=== PATIENT | female | born 1990 | race Caucasian/White ===

== ENCOUNTER 2016-11-26 15:46 | Observation (INO) | payer OTHER ==
[~2016-11-26] VITALS: Ht 170 cm; Wt 65.8 kg
== END 2016-11-26 23:50 | disposition home or self-care (01) ==
LOC: 4S 15:46
PROVIDERS: ADMIT Obstetrics & Gynecology; ATTEND Obstetrics & Gynecology
DX: O46.93 Antepartum hemorrhage, unspecified, third trimester (principal); Z3A.37 37 weeks gestation of pregnancy
CPT/HCPCS: 59025; G0378

== ENCOUNTER 2016-12-03 09:55 | Observation (INO) | payer OTHER ==
[~2016-12-03] VITALS: Ht 165.1 cm; Wt 68.0 kg
[2016-12-03] MEDS ORDERED: PREN1TAB80 PO (10:27)
[2016-12-03 10:29] VITALS: BP 109/64
== END 2016-12-03 11:20 | disposition home or self-care (01) ==
LOC: 4S 09:55
PROVIDERS: ADMIT Obstetrics & Gynecology; ATTEND Obstetrics & Gynecology
DX: O26.93 Pregnancy related conditions, unspecified, third trimester (principal)
CPT/HCPCS: 59025; G0378

== ENCOUNTER 2016-12-04 18:11 | Inpatient (IN) | payer OTHER ==
[~2016-12-04] VITALS: Ht 170 cm; Wt 68.5 kg
[~2016-12-04 18:11] MED LIST: PREN1TAB80 PO
[2016-12-04] MEDS ORDERED: OXYTOCIN 30 UNITS/LACT RINGERS 500 ML IV ONE (18:35)
[2016-12-04] MEDS ORDERED: RINGERS SOLUTION,LACTATED 1,000 ML IV SCH (18:35)
[2016-12-04] MEDS ORDERED: RINGERS SOLUTION,LACTATED 1,000 ML IV PRN (18:35)
[2016-12-04 18:38] VITALS: BP 115/64
[2016-12-04] MEDS ORDERED: CITRIC ACID/SODIUM CITRATE 30 ML SOLUTION UDCUP PO PRN (18:45)
[2016-12-04] MEDS ORDERED: LIDOCAINE HCL/PF 1% 30 ML VIAL INJ PRN (18:45)
[2016-12-04] MEDS ORDERED: METHYLERGONOVINE MALEATE 0.2 MG/ML VIAL IM PRN (18:45)
[2016-12-04] MEDS ORDERED: METOCLOPRAMIDE HCL 5 MG/ML 2 ML VIAL IVP PRN (18:45)
[2016-12-04] MEDS ORDERED: INFLUENZA VIRUS VACCINE QVS 2017-18 (3YR+)/PF 60 MCG/0.5 ML SYRINGE IM ONE (19:00)
[2016-12-04 19:18] LABS: BASOPHILS # (AUTO) 0.04 K/uL (0.00-0.20); BASOPHILS % (AUTO) 0.6 % (0.0-2.0); EOSINOPHILS # (AUTO) 0.05 K/uL (0.00-0.70); EOSINOPHILS % (AUTO) 0.89 % (1.0-6.0); HEMATOCRIT 32.9 % (36-46); HEMOGLOBIN 11.1 g/dL (12.0-16.0); LYMPHOCYTES # (AUTO) 1.8 K/uL (1.0-4.8); MEAN CORPUSCULAR HEMOGLOBIN 32.7 pg (26.0-34.0); MEAN CORPUSCULAR HGB CONC 33.8 G/dL (31.0-37.0); MEAN CORPUSCULAR VOLUME 97 fL (80-100); MONOCYTES # (AUTO) 0.5 K/uL (0.1-1.0); MONOCYTES % (AUTO) 7.5 % (2.0-9.0); NEUTROPHILS # (AUTO) 3.7 K/uL (1.8-7.7); NEUTROPHILS % (AUTO) 61.1 % (40.0-70.0); RED BLOOD CELL COUNT(AUTO) 3.39 MIL/uL (4.00-5.20); RED CELL DISTRIBUTION WIDTH 14.3 % (11.5-14.5); WHITE BLOOD COUNT (AUTO) 6.1 K/uL (4.5-11.0)
[2016-12-04] MEDS ORDERED: DINOPROSTONE 10 MG VAGINAL SUPPOSITORY VG ONE (19:45)
[2016-12-04] MEDS ORDERED: OXYGEN THERAPY IH SCH (20:00)
[2016-12-05] MEDS: FentaNYL CITRATE-PF 100 MCG/2 ML VIAL IVP PRN ×3 (05:06→07:50)
[2016-12-05] MEDS ORDERED: OXYTOCIN 30 UNITS/LACT RINGERS 500 ML IV PRN (08:18)
[2016-12-05] MEDS ORDERED: BUPIVACAINE HCL/PF 0.25% 30 ML VIAL ONE (10:33)
[2016-12-05] MEDS ORDERED: FentaNYL/BUPIV 0.125%/NS/PF 200 ML ED ONE (10:35)
[2016-12-05] MEDS ORDERED: FentaNYL/BUPIV 0.125%/NS/PF 200 ML ED PRN (11:13)
[2016-12-05] MEDS ORDERED: ONDANSETRON HCL 4 MG/2 ML VIAL IVP PRN (11:15)
[2016-12-05] MEDS ORDERED: DiphenhydrAMINE HCL 50 MG/ML VIAL IVP PRN (11:15)
[2016-12-05] MEDS ORDERED: CeFAZolin 2 GM/DEXTROSE 50 ML IV ONE (13:30)
[2016-12-05] MEDS ORDERED: ACETAMINOPHEN/CODEINE 300-30 MG TABLET PO PRN ×2 (14:00)
[2016-12-05] MEDS ORDERED: BENZOCAINE 20%/MENTHOL 56 GM SPRAY CANISTER TP PRN (14:00)
[2016-12-05] MEDS ORDERED: LANOLIN 7 GM OINTMENT TP PRN (14:00)
[2016-12-05] MEDS ORDERED: GLYCERIN/WITCH HAZEL LEAF 40 PADS JAR TP PRN (14:00)
[2016-12-05] MEDS: IBUPROFEN 800 MG TABLET PO SCH ×2 (15:39→22:20)
[2016-12-05] MEDS: MAGNESIUM HYDROXIDE SUSPENSION 30 ML UDCUP PO SCH (22:20)
[2016-12-06] MEDS: IBUPROFEN 800 MG TABLET PO SCH ×2 (06:02→12:15)
[2016-12-06] MEDS: MAGNESIUM HYDROXIDE SUSPENSION 30 ML UDCUP PO SCH (09:12)
[2016-12-06] MEDS ORDERED: IBUP-2071 PO (15:44)
[2016-12-06] MEDS ORDERED: DSS100 PO (15:45)
== END 2016-12-06 16:00 | disposition home or self-care (01) | DRG 775 ==
LOC: 4S 18:11 → PREOBSVTOIN 12-31 18:23
PROVIDERS: ADMIT Obstetrics & Gynecology; ATTEND Obstetrics & Gynecology
PROC: 10D07Z6 Extraction of Products of Conception, Vacuum, Via Natural or Artificial Opening (ICD-10-PCS; principal; 2016-12-05)
PROC: 0KQM0ZZ Repair Perineum Muscle, Open Approach (ICD-10-PCS; 2016-12-05)
PROC: 3E0234Z Introduction of Serum, Toxoid and Vaccine into Muscle, Percutaneous Approach (ICD-10-PCS; 2016-12-05)
DX: O70.1 Second degree perineal laceration during delivery (principal); Z37.0 Single live birth; O64.0XX0 Obstructed labor due to incomplete rotation of fetal head, not applicable or unspecified; Z3A.39 39 weeks gestation of pregnancy; O66.5 Attempted application of vacuum extractor and forceps; Z23 Encounter for immunization
CPT/HCPCS: 86850; 86900; 86901; 90471; J2590; J3010; J3490; J7120